=== PATIENT | male | born 1950 | race Caucasian/White ===

== ENCOUNTER 2022-02-19 08:22 | Observation (INO) ==
--- NOTE | 2022-01-25 15:19 | PAT Medication Instructions ---
Medication Instructions Date of Service January 25, 2022 Home Medications Medication Instructions Recorded amoxicillin 500 mg tablet 2,000 mg PO ONCE #4 tab 09/08/21 acetaminophen 650 mg 1,300 mg PO Q12H PRN #120 tab 12/26/21 tablet,extended release (Tylenol Arthritis Pain) tramadol 50 mg tablet 100 mg PO Q12H PRN #120 tab 12/26/21 amoxicillin 500 mg tablet 2,000 mg PO ONCE acetaminophen 650 mg tablet,extended release (Tylenol Arthritis Pain) 1,300 mg PO Q12H PRN tramadol 50 mg tablet 100 mg PO Q12H PRN Insta-Flex 1 cap PO DAILY Lurosil 1 cap PO HS omega-3 fatty acids 1,000 mg PO DAILY Continue as directed amoxicillin 500 mg tablet 2,000 mg PO ONCE (prior to procedure) STOP taking 2 weeks before surgery (or as soon as possible if surgery is within 2 weeks) Insta-Flex 1 cap PO DAILY omega-3 fatty acids 1,000 mg PO DAILY Lurosil 1 cap PO HS Take morning of surgery With a small sip of water, OTHERWISE NOTHING TO EAT OR DRINK AFTER MIDNIGHT: acetaminophen 650 mg tablet,extended release (Tylenol Arthritis Pain) 1,300 mg PO Q12H PRN (okay to take up to 4 hours prior to surgery if needed) tramadol 50 mg tablet 100 mg PO Q12H PRN (okay to take up to 4 hours prior to surgery if needed) Take evening before surgery acetaminophen 650 mg tablet,extended release (Tylenol Arthritis Pain) 1,300 mg PO Q12H PRN (if needed) tramadol 50 mg tablet 100 mg PO Q12H PRN (if needed) Other Notes If you have any questions please call us at [phone] or [phone] or [phone] or [phone]
--- NOTE | 2022-01-29 12:44 | Anesthesiology Consultation ---
Date of Service January 29, 2022 Assessment & Plan (1) Encounter for pre-operative examination: - systolic murmur. Chronic per pt, not listed in PCP record. Given plan for neuraxial anesthesia, recommendation is for echocardiogram ordered by PCP prior to surgery per discussion with Dr. Wagoner. Optimization note completed. Pt aware and denies recent echocardiogram, states will also discuss scheduling this at upcoming 02/06 appt. Awaiting echocardiogram. - COVID screening: Per assessment on 01/29/2022: Travel screen negative, no known COVID-19 positive contacts or current COVID-19 related symptoms in past 2 weeks. Surgeon arranging preop COVID testing, scheduled 02/15/2022. Awaiting results. Chart Review Chart Review: Pending: Refer to Additional Notes / Consult section and Patient seen in Pre Admission Testing Teaching & Discussion Pre-Anesthesia Teaching/Discussion Notes: Instructed NPO after midnight before surgery, except medications with 15 cc of water. Medication instructions provided according to the PAT guidelines. History Surgery Operation Date: 02/19/22 10:40 Proposed Procedures p Right Total Hip Arthroplasty - John Paul Kearns MD Height/Weight Height: 5 ft 11 in Weight: 102.8 kg Allergies Allergy/AdvReac Type Severity Reaction Status Date / Time No Known Allergies Allergy Verified 01/25/22 11:37 Medications Home Medications Medication Instructions Recorded Confirmed Last Taken amoxicillin 500 mg tablet 2,000 mg PO ONCE #4 tab 09/08/21 01/25/22 Unknown acetaminophen 650 mg 1,300 mg PO Q12H PRN #120 tab 12/26/21 01/25/22 Unknown tablet,extended release (Tylenol Arthritis Pain) tramadol 50 mg tablet 100 mg PO Q12H PRN #120 tab 12/26/21 01/25/22 Unknown Insta-Flex 1 cap PO DAILY 01/25/22 01/25/22 Unknown Lurasol 1 cap PO QID 01/25/22 01/25/22 Unknown Lurosil 1 tab PO HS 01/25/22 Unknown omega-3 fatty acids 1,000 mg PO DAILY 01/25/22 01/25/22 Unknown Past Medical History Medical History (Updated 01/29/22 @ 14:04 by Lorna Doty PA-C) Cardiac murmur MILD per pt Factor V Leiden mutation High cholesterol HX OF "NORMAL NOW" History of DVT (deep vein thrombosis) 10/2017; AC X 6 MONTHS; NO ISSUES SINCE Hx pulmonary embolism 10/2017; AC X 6 MONTHS; NO ISSUES SINCE Lumbar spondylosis Osteoarthritis Sleep apnea CPAP-compliant Patient denies h/o stroke, seizures, heart attack, heart failure, DM, HTN, or blood transfusions. Exercise / Class Metabolic Activity II 4-5 Yardwork/Stairs/Walk up hill (denies CP or SOB with 1 FOs) Past Family History Family History Sister Family history of esophageal cancer Cancer ESOPHAGEAL CANCER Mother Hypertension Father Myocardial infarction Brother Prostate cancer Other No family history of adverse response to anesthesia Denies family history of Ovarian cancer Diabetes Alzheimer disease Bipolar disorder Dementia Depression Kidney disease Breast cancer Lung cancer COPD (chronic obstructive pulmonary disease) Colorectal cancer Colonic polyp Stroke Asthma Past Surgical History Surgical History H/O external ear surgery TUMOR REMOVED FROM LEFT EAR H/O wisdom tooth extraction History of appendectomy History of left hip replacement History of open reduction and internal fixation (ORIF) procedure LEFT ANKLE Past Anesthesia History No Hx of Anesthesia Complications and No Family Hx of Anesthesia Complications History of PONV No Hx of PONV and No Hx of Motion Sickness Social History Smoking Status: Never smoker Do You Dip or Chew Tobacco: No Hx Alcohol Use: No Hx Substance Use: No substance use type: does not use Review of Systems Patient denies chest pain, shortness of breath, dyspnea on exertion, reflux, fever, chills, cough, wheezing, or palpitations. Physical Exam Vital Signs Vitals BP 151/79 P 63 TEMP 97.9 SP02 95% on RA RESP 17 Physical Full cervical extension range of motion without pain TMD 3.5 finger breaths Mallampati Score 2 Dentition: intact, several caps-none in front; denies missing, chipped or loose teeth, implants or bridges Lungs: normal respiratory effort. Clear throughout to auscultation, no adventitious breath sounds Cardiac: regular rate and rhythm, 2/6 systolic murmur Carotid arteries: negative bruit bilat Lab Results Anesthesia Preop Results Results Anesthesia Widget: WBC 6.10 K/uL (4.8-10.8) 01/29/22 Hgb 12.8 g/dL (14.0-18.0) L 01/29/22 Hct 39.3 % (42-52) L 01/29/22 Plt 242 K/uL (130-400) 01/29/22 Na 138 mmol/L (136-145) 01/29/22 K 4.4 mmol/L (3.5-5.1) 01/29/22 Cl 103 mmol/L (98-107) 01/29/22 CO2 28 mmol/L (21-32) 01/29/22 BUN 18 mg/dl (6-23) 01/29/22 Creat 0.86 mg/dl (0.6-1.4) 01/29/22 Glucose Level 94 mg/dl (70-99(Fasting)) 01/29/22 PT 10.2 Seconds (9.0-12.0) 01/29/22 PTT 27.0 Seconds (21.0-31.0) 01/29/22 INR 1.0 (0.9-1.1) 01/29/22 Blood Type A Positive 01/29/22 Antibody Screen NEGATIVE 01/29/22 Testing Electrocardiogram Date: 01/29/22 Sinus bradycardia with sinus arrhythmia, rate 55 bpm Chest X-Ray Date: 01/29/22 There are old, healed right-sided rib fractures. There is mild diffuse interstitial thickening which is likely chronic. Otherwise, no focal lung consolidations to suggest pneumonia. No evidence for pulmonary edema. The heart is normal in size. Mild calcified plaque within the aortic knob. Linear density at the right lung base favors subsegmental atelectasis/scarring. The lungs are mildly hyperexpanded. IMPRESSION: Mild diffuse interstitial thickening which is likely chronic. Otherwise, no acute process within the chest.
--- NOTE | 2022-02-17 14:29 | History and Physical Report ---
CHIEF COMPLAINT: Persistent progressive right hip pain and discomfort. HISTORY OF PRESENT ILLNESS: The patient is a 71-year-old fernandez who is well known to me from [place] left hip replacement done 3-1/2 years ago. Over the years, he has developed increased pain and dis comfort in his right hip. He describes lateral hip pain and groin pain radiating down to his side, b ut no further. 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 It has become more disabli ng. We put a shot in his bursa that may have helped him just for a couple of days and that is it. H e limps more as the day goes on. The pain has become more disabling. He feels like this pain was ju st like his left hip pain was beforehand and would like to have his right hip fixed. PAST MEDICAL HISTORY: Includes, 1. DVT/PE x1 without a clotting disorder. 2. Sleep apnea. 3. Obesity with a BMI of 32. 4. Hiatal hernia. PAST SURGICAL HISTORY: Includes, 1. Appendectomy. 2. Ankle fracture ORIF. 3. Ear gland surgery. 4. Kewadin teeth surgery. 5. Left hip replacement done on 09/10/2018. ALLERGIES: None. CURRENT MEDICATIONS: Tramadol and Tylenol Arthritis. SOCIAL HISTORY: A 71-year-old male. He is . He is a fernandez. He does not smoke. FAMILY HISTORY: Noncontributory. REVIEW OF SYSTEMS: Significant for one episode of DVT/PE. It was felt to be a provoked episode. He has got no known clotting disorder. He denies any chest pain or shortness of breath. No history of any other bleeding problems. PHYSICAL EXAMINATION: GENERAL: Shows a pleasant middle-aged male. Fairly large gentleman. HEENT: Benign. NECK: Supple. No lymphadenopathy. LUNGS: Clear to auscultation. HEART: Regular rate and rhythm. ABDOMEN: Soft, nontender, nondistended. EXTREMITIES: Grossly neurovascularly intact except as follows: Examination of the right hip reveale d the patient walks with a bit of a hunched over posture. His leg lengths appear pretty equal. He h as got some mild diffuse edema distally. He has got pain with any type of hip motion. I can interna lly rotate to neutral, but it recreates his groin pain. Negative straight leg raise. X-RAYS: X-rays of the right hip were reviewed. It shows moderate hip arthritis. He has got fairly concentric disease. He still has a little bit of joint space remaining. ASSESSMENT: A 71-year-old gentleman and fernandez, status post a left hip replacement 3-1/2 years ago w ith right hip pain consistent with arthritis. It does seem to be coming from his hip joint. He has still got a little bit of joint space left, but it seems like this is coming from his hip and it has made his job and his life difficult. He is happy with the left hip and would like to have his right hip replaced. PLAN: We will take him to the operating room and do a right total hip replacement. The risks and be nefits of this procedure were explained to the patient and include, but not limited to, DVT, PE, deat h, infection, neurological injury, vascular injury, bleeding problem, pain, limited range of motion, stiffness, failure to relieve his symptoms, incomplete relief of symptoms, etc. The patient understa nds and desires to proceed. Informed consent was obtained. As far as discharge plan, he is planning to be discharged to home using [facility] . Due to the history of this blood clot in the past, we will use Xarelto postoperatively for 30 days at a prophylactic dose. Job ID: [id number]
[~2022-02-19 08:22] MED LIST: ACETAMINOPHEN 500 MG TAB PO SCH; BUPIVACAINE 0.5 % 5 MG/1 ML PF 10ML VIAL ONE; BUPIVACAINE LIPOSOME/PF 266 MG, BUPIVACAINE/EPINEPHRINE 50 ML, SODIUM CHLORIDE 0.9% 30 ... INFIL SCH; CeleBREX 200 MG CAP PO SCH; FAMOTIDINE 20 MG TAB PO SCH; GABAPENTIN 300 MG CAP PO SCH; LR 500ML BOLUS, THEN 15ML/HR IV SCH; LR 60ML/HR IV SCH; METOCLOPRAMIDE HCL 10 MG TABLET PO SCH; Scopolamine 1 MG TDSY TD SCH; TRANEXAMIC ACID 1,000 MG **IV Pre-op IV SCH; ceFAZolin 2000MG 2,000 MG/15 ML SYR IV SCH
--- NOTE | 2022-02-19 08:55 | History & Physical Bridge Note ---
Date of Service February 19, 2022 History & Physical Bridge Note I have examined the patient, reviewed the History & Physical and in the interval since the performance of the History & Physical I have noted the following changes of clinical significance: no changes noted
[2022-02-19] MEDS ORDERED: MIDAZOLAM HCL 1 MG/ML 2ML VIAL ONE (09:26)
[2022-02-19] MEDS ORDERED: fentaNYL citrate 100 MCG/2 ML VIAL ONE (09:26)
[2022-02-19] MEDS ORDERED: BUPIVACAINE 0.5 % 5 MG/1 ML MPF 30ML VIAL ONE (10:59)
[2022-02-19] MEDS ORDERED: EPINEPHrine INJ 1 MG/ML AMP ONE (10:59)
[2022-02-19] MEDS ORDERED: PROPOFOL IV EMULSION 10 MG/ML 20 ML VIAL IV ONE (11:36)
[2022-02-19] MEDS ORDERED: ONDANSETRON INJ 2 MG/ML 2 ML VIAL ONE (11:36)
[2022-02-19] MEDS ORDERED: LIDOCAINE 2% 2 ML VIAL/AMP(20MG/ML) INFIL ONE (11:36)
[2022-02-19] MEDS ORDERED: fentaNYL citrate 100 MCG/2 ML VIAL IV PRN (11:40)
[2022-02-19] MEDS ORDERED: ONDANSETRON INJ 2 MG/ML 2 ML VIAL IV PRN ×2 (11:40→14:52)
[2022-02-19] MEDS ORDERED: ATROPINE SULFATE 0.1 MG/ML 10ML SYR IV PRN (11:40)
[2022-02-19] MEDS ORDERED: ePHEDrine sulfate 50 MG/ML AMP IV PRN (11:40)
--- NOTE | 2022-02-19 13:04 | Operative Report ---
PG Post Operative Report Pre & Post Diagnosis Operation Date: 02/19/22 10:40 Pre-Op Diagnosis: Right Hip Osteoarthritis Post-Op Diagnosis: Right Hip Osteoarthritis I identified the patient and participated in the time-out.: Yes Procedure Operation Date: 02/19/22 10:40 Actual Procedures p Right Total Hip Arthroplasty(Right) - John Paul Kearns MD Surgeon John Paul Kearns MD Production Boring Machine Operator Jim Whitehead PA-C Estimated Blood Loss 200 Findings Consistent with Post-Op Diagnosis Operative findings revealed moderately advanced right hip arthritis. He did have full-thickness cartilage loss of the femoral head. Not much in way of osteophyte formation. He did have a moderate sized hip joint effusion. Fluids 1200 cc Specimens Right femoral head sent for pathology Anesthesia Type Spinal MAC Complications none Disposition Accompanied Patient To Recovery: Yes Indications Patient is 71-year-old very active fernandez whose had a long history of hip problems and had his left hip replaced in the past. Over the past year or so he developed increased pain discomfort in his right hip. He is also got underlying knee and ankle arthritis. He was bothered most by the hip problem. X-rays show a moderately advanced hip arthritis which has progressed over the past year. He elected proceed with total hip arthroplasty. Of note, on exam he really had tight anterior hip soft tissues. Posteriorly was not near as stiff but anteriorly quite stiff with limited extension and external rotation. Description of Procedure Operative implants consist of: 1 Biomet G7 size 58 mm acetabular shell. 2. 6.5 cancellous acetabular screws 135 mm length 130 mm length. 3. [place] hole automotive wholesale parts advisor. 4. Highly cross-linked polyethylene liner with a 58 mm outer diameter, 36 mm inner diam with a mcdaniels placed inferior and posterior. 5. DePuy Corail size 12 KLA femoral stem. 6. +5/36 mm ceramic articular ball. The patient was taken to the operating, identified, placed on the operating table supine position protectors were properly padded. IV antibiotics 5 by anesthesia team. A spinal anesthetic had been implemented in the holding area. A Payne catheter was placed in sterile fashion. The patient then placed in the left lateral decubitus position. A Stulberg hip positioner was used for positioning. The right hip and leg were then prepped and draped in usual sterile fashion. A posterior lateral approach of the right hip was then performed through a curvilinear incision centered over the greater trochanter. Sharp dissection Through subcutaneous tissue down to the IT band gluteal fascia. The IT band gluteal fascia was incised longitudinally in line with the skin incision. The greater trochanteric bursa was excised. The piriformis and external rotators were tagged and taken off the posterior aspect hip joint capsule. A posterior capsulotomy was then performed in the large flap for later repair. Hip was internally rotated and dislocated. Femoral neck osteotomy cut was made with a Final Cut about 12 mm above the lesser trochanter. Femoral head was removed and sent for pathology. The femur was retracted anteriorly. Attention drawn the acetabulum. The acetabular labrum was excised. The pulmonary fat was excised. Sequential reaming the acetabular was then performed begin with a size 47 and progressing up to a 57. A 58 mm reamer was then used and the 58 mm Biomet G7 acetabular cup was placed in about 40 degrees lateral opening and 20 degrees of anteversion. It was fixed with two 6.5 cancellous acetabular screws. Trial liner was placed. Attention drawn the femur. The proximal femur was entered with a cookie cutter followed by canal finder. I then broached begin the size 8 and progressing up to a 12. Got excellent fit of the 12. He had a very supportive cancellous envelope. Possible I could have broached a bit more but this was a very tight fit with a good cancellous bone. We elected to stop there. Calcar reamer was used smooth and off the calcar. I then trialed the hip and the +5 articular ball seem to recreate leg lengths equal. It was still little bit tight anteriorly. He was fully stable in flexion and internal rotation over [address] these implants. I did elect to place a mcdaniels inferior and posterior due to his tightness anteriorly and concern for posterior instability in this fernandez and does a lot of bending. All trial implants were removed. An apex hole automotive wholesale parts advisor was placed. Highly cross-linked polyethylene liner was placed. The mcdaniels was placed inferior and posterior. A size 12 KLA femoral stem was impacted in position. +5/36 mm articular ball was placed and the hip was located. Once again found to be stable. Attention drawn toward closing. The wounds irrigated scope soft pulsatile lavage solution. I did inject locally with 60 cc of absent Marcaine with epinephrine. The posterior capsule and external rotators were then repaired through drill holes in the posterior trochanter with #2 Tycron suture. The IT band gluteal fascia then closed with #1 PDS suture running fashion for subcutaneous tissues then closed in 2 layers with a deep layer #1 Vicryl suture in the subcutaneous tissues with 2-0 Dexon suture in a buried interrupted fashion. Skin was closed skin ericka. Leg was then cleaned and dried a sterile dressing was Xeroform, 4 fours, sterile ABD pad, foam tape was applied. The patient then transferred to the recovery room in stable condition. Patient tolerated procedure well and there were no complications. Jim Whitehead, my physician executive assistant, was present for the entire procedure. His assistance was essential and required for appropriate patient positioning, prepping and draping, surgical exposure, performing the technical details of the operation, placement the implants, closure of the wound, and placement of the sterile bandage. I attest to the content of the Intraoperative Record and any orders documented therein. Any exceptions are noted below.
--- NOTE | 2022-02-19 13:29 | XRay Report ---
AP PELVIS, CROSSTABLE LATERAL RIGHT HIP History: Right total hip arthroplasty. Degenerative arthritis. Postop. FINDINGS: The patient is status post a right total hip arthroplasty. The hardware is intact. No fract ure or dislocation. Skin ericka are in place. Evidence for prior left total hip arthroplasty. IMPRESSION: Right total hip arthroplasty. No evidence for hardware complication ACT 112: Negative or not required by law. Electronically signed by: Andrew Garay M.D. 02/19/2022 1:27 PM
--- NOTE | 2022-02-19 14:13 | Anesthesiology Progress Note ---
Date of Service February 19, 2022 Anesthesia Post Procedure Vital Signs Vital Signs: Temp Pulse Pulse Resp BP Pulse Ox 02/19/22 13:40 36.5 C 46 L 15 136/70 95 02/19/22 13:30 36.5 C 51 L 14 129/64 96 02/19/22 13:20 36.5 C 54 L 23 126/72 100 02/19/22 13:10 47 L 15 121/61 100 02/19/22 13:00 47 L 15 114/58 L 100 02/19/22 12:52 36.3 C L 61 16 110/53 L 100 02/19/22 08:52 36.6 C 65 18 155/84 H 96 Transfer of Care Handoff Completed per policy Notes Mental Status: alert / awake / arousable Patient Amnestic to Procedure: Yes Nausea / Vomiting: adequately controlled Pain: adequately controlled Airway Patency, RR, SpO2: stable & adequate BP & HR: stable & adequate Hydration State: stable & adequate Neuraxial Anesthesia: was administered and sensory block is resolving Anesthetic Complications: no major complications apparent
[2022-02-19] MEDS ORDERED: bisacodyL 10 MG SUPP PR PRN (14:52)
[2022-02-19] MEDS ORDERED: METOCLOPRAMIDE HCL INJ 5 MG/ML 2 ML VIAL IV PRN (14:52)
[2022-02-19] MEDS ORDERED: NALOXONE HCL 0.4 MG/1 ML VIAL/CARP IV PRN (14:52)
[2022-02-19] MEDS ORDERED: traMADol HCL 50 MG TABLET PO PRN (14:52)
[2022-02-19] MEDS ORDERED: MAGNESIUM HYDROXIDE SUSP 30 ML UDC PO PRN (14:52)
[2022-02-19] MEDS ORDERED: HYDROmorphone INJ 0.5 MG/0.5 ML SYR IV PRN (14:52)
[2022-02-19] MEDS ORDERED: ALUMINUM/MAGNESIUM SUSP 30 ML UDC PO PRN (14:52)
[2022-02-19] MEDS: Scopolamine CHECK PATCH PLACEMENT SCH ×2 (15:15→22:06)
[2022-02-19] MEDS: SODIUM CHLORIDE 0.9% 1000ML 1,000 ML IV SCH (15:41)
[2022-02-19] MEDS: ACETAMINOPHEN 500 MG TAB PO SCH ×2 (15:41→22:06)
[2022-02-19] MEDS: KETOROLAC TROMETHAMINE 15 MG/ML VIAL IV SCH ×2 (15:42→22:06)
[2022-02-19] MEDS: ASCORBIC ACID 500 MG TAB PO SCH (16:40)
--- NOTE | 2022-02-19 18:02 | Progress Notes ---
DATE OF NOTE: 02/19/2022. SUBJECTIVE: A 71-year-old fernandez postop from a right hip replacement. He is doing pretty well. Hav ing a little bit of pain. No chest pain or shortness of breath. Not feeling dizzy or lightheaded. OBJECTIVE: VITAL SIGNS: Temperature is 36.7. Vital signs are stable. GENERAL: Shows a pleasant middle-aged male. He is sitting up in bed and just starting to eat his di nner. LUNGS: Clear to auscultation. HEART: Regular rate and rhythm. ABDOMEN: Soft, nontender, nondistended. EXTREMITIES: Grossly neurovascularly intact except as follows. Examination of the right hip and leg reveals the leg lengths to be equal. His thigh is soft and supp le. Dressing is clean, dry and intact. He can dorsiflex and plantarflex his foot appropriately. X-RAYS: X-rays of the right hip from recovery room are reviewed. It shows right uncemented total hi p arthroplasty. Components looked to be in good position. No signs of problems. ASSESSMENT: A 71-year-old gentleman postoperative from right hip replacement, doing well. His pain is controlled. His hip is located. He does have a history of a deep venous thrombosis in the past. He has also got a factor V Leiden abnormality. PLAN: 1. DVT prophylaxis include thigh-high TEDs, SCDs and we will start him on Xarelto prophylactically t omorrow 24 hours post-surgery. 2. PT, OT, weightbear as tolerated. Right total hip protocol. 3. Pain control, doing well with current pain regimen. 4. IV antibiotics x24 hours. 5. Disposition: Plan to discharge to home with some home health once adequately recovered and medic ally stable. Job ID: [id number]
[2022-02-19] MEDS: ceFAZolin 2000MG 2,000 MG/15 ML SYR IV SCH (18:59)
[2022-02-19] MEDS ORDERED: TRANEXAMIC ACID / 0.7% NACL 1,000 MG/100 ML BAG IV SCH (19:00)
[2022-02-19] MEDS ORDERED: SENNA 8.6 MG TAB PO SCH (21:00)
[2022-02-19] MEDS: DOCUSATE SODIUM 100 MG CAP PO SCH (22:06)
[2022-02-20] MEDS: SODIUM CHLORIDE 0.9% 1000ML 1,000 ML IV SCH (02:02)
[2022-02-20] MEDS: ceFAZolin 2000MG 2,000 MG/15 ML SYR IV SCH (04:01)
[2022-02-20] MEDS: KETOROLAC TROMETHAMINE 15 MG/ML VIAL IV SCH ×2 (04:01→09:55)
[2022-02-20 07:34] LABS: Basophils # (auto) 0.02 K/uL (0-0.2); Basophils % (auto) 0.3 %; Eosinophils # (auto) 0.12 K/uL (0-0.5); Eosinophils % (auto) 1.6 %; Hematocrit (blood only) 32.7 % (42-52); Hemoglobin 10.7 g/dL (14.0-18.0); Immature Granulocytes # (auto) 0.01 K/uL (0.00-0.02); Immature Granulocytes % (auto) 0.1 %; Lymphocytes # (auto) 1.14 K/uL (1.2-3.4); Lymphocytes % (auto) 15.1 %; Mean Corpuscular Hemoglobin 27.8 pg (25-34); Mean Corpuscular Hgb Conc 32.7 g/dL (32-36); Mean Corpuscular Volume 84.9 fL (80-100); Mean Platelet Volume 9.6 fL (7.4-10.4); Monocytes # (auto) 0.58 K/uL (0.11-0.59); Monocytes % (auto) 7.7 %; Neutrophils % (auto) 75.2 %; Platelet Count 200 K/uL (130-400); RDW Coefficient of Variation 14.6 % (11.5-14.5); RDW Standard Deviation 45.6 fL (36.4-46.3); Red Blood Count 3.85 M/uL (4.7-6.1); White Blood Count 7.57 K/uL (4.8-10.8)
[2022-02-20 07:59] LABS: BUN Creatinine Ratio 25.8 (10-20); Calcium 8.5 mg/dl (8.5-10.1); Creatinine Clr Calc Pharmacy 91.4 ml/min; Est GFR (African American) 99.7 ml/min; Potassium 4.3 mmol/L (3.5-5.1)
[2022-02-20] MEDS ORDERED: dexAMETHasone 10 MG in SYRINGE 0 ML IV SCH (08:00)
[2022-02-20] MEDS: DOCUSATE SODIUM 100 MG CAP PO SCH (08:52)
[2022-02-20] MEDS: Scopolamine CHECK PATCH PLACEMENT SCH (08:52)
[2022-02-20] MEDS: ACETAMINOPHEN 500 MG TAB PO SCH ×2 (08:52→12:54)
[2022-02-20] MEDS: ASCORBIC ACID 500 MG TAB PO SCH (08:53)
[2022-02-20] MEDS ORDERED: TAMSULOSIN HCL 0.4 MG CAP PO SCH (09:00)
[2022-02-20] MEDS ORDERED: MULTIVITAMIN TAB PO SCH (09:00)
--- NOTE | 2022-02-20 11:55 | Progress Notes ---
DATE OF SERVICE: 02/20/2022 SUBJECTIVE: A 71-year-old gentleman postoperative day 1 from right hip replacement. He is doing wel l. His pain is controlled. Therapy went well. Denies any chest pain or shortness of breath. Not f eeling dizzy or lightheaded. Hoping to go home. OBJECTIVE: VITAL SIGNS: Temperature 37.3. Vital signs are stable. PHYSICAL EXAMINATION: GENERAL: Shows a pleasant elderly male. He is sitting up at his bedside chair, looks completely com fortable. EXTREMITIES: Examination of the right hip reveals dressing to be clean, dry and intact. Leg lengths were equal. Thigh is soft and supple. He is neurologically intact. He can do a straight leg raise . LABORATORY: Hemoglobin 10.7. Hematocrit 32.7. Electrolytes are stable. ASSESSMENT: A 71-year-old gentleman postoperative day 1 from right hip replacement, doing well. [place] n is controlled. Hip is located. He is neurologically intact. Hoping to go home. PLAN: 1. DVT prophylaxis includes thigh-high TEDs, SCDs, and he is on Xarelto for 30 days. 2. PT/OT. He can weight bear as tolerated. Right total hip protocol. 3. Pain control, doing well with current pain regimen. 4. Disposition: Plan to discharge to home with some home health later today. Job ID: [id number]
[2022-02-20] MEDS ORDERED: RIVAROXABAN 10 MG TABLET PO SCH (13:54)
--- NOTE | 2022-02-23 07:53 | Discharge Summary ---
Date of Service February 23, 2022 Discharge Data Procedures Performed Operation Date: 02/19/22 10:40 Actual Procedures p Right Total Hip Arthroplasty(Right) - John Paul Kearns MD Hospital Course (1) S/P total right hip arthroplasty: This patient is a 71 year old male admitted on 02/19/22 and underwent total hip arthroplasty. He tolerated the procedure well and there were no compli cations. Transferred to the PACU post op and later to the orthopedic floor for further care. He was given ancef for antibiotic prophylaxis. He was also given JASMIN stockings, SCDs, and aspirin for DVT prophylaxis. Hemoglobin, hematocrit, and vital signs were monitored during his hospital stay and remained stable. Did not require any blood transfusions. There were no complications during his hospital stay. By post op day #1 the patient was tolerating a regular diet, pain was reasonably controlled with oral pain medicine, and he was participating in physical therapy. On post op day #1 the patient was discharged home and set up with home health care. He was given printed discharge instructions including prescriptions for extra strength tylenol, xarelto, zofran, tramadol, and flomax. Continue physical therapy, weight bearing as tolerated. Continue hip precautions. Continue JASMIN stockings. Follow up approximately 2 weeks post op or sooner if there are problems or concerns. Coding Level of Care Code None Diagnoses S/P total right hip arthroplasty Z96.641
== END 2022-02-20 14:30 | disposition home health service (06) ==
LOC: 3E 08:22 → ASU 08:22